=== PATIENT | male | born 1965 | race African-American/Black ===

== ENCOUNTER 2020-06-04 11:18 | Inpatient (IN) | payer MEDICARE, MEDICAID ==
[~2020-06-04] VITALS: Ht 182.9 cm; Wt 81.2 kg
[2020-06-04] VITALS (7 sets, daily range): BP systolic 65–135; BP diastolic 29–102
[2020-06-04] MEDS ORDERED: ASPI-1497 PO (11:22)
[2020-06-04] MEDS ORDERED: PANTOPRAZOLE SODIUM 40 MG/VIAL IV STA (11:40)
[2020-06-04 12:44] LABS: HEMATOCRIT. 25.5 % (42.0-52.0); HEMOGLOBIN. 8.9 g/dL (14.0-18.0); MEAN CORPUSCULAR HEMOGLOBIN 34.5 pg (28.0-32.0); MEAN CORPUSCULAR VOLUME 99.4 fL (80.0-94.0); MEAN PLATELET VOLUME 9.9 fl (7.4-10.4); PLATELET 232 x1000/uL (130-400); RED BLOOD CELL COUNT 2.57 mill/uL (4.7-6.1); RED CELL DISTRIBUTION WIDTH 15.5 % (11.6-14.6)
[2020-06-04 12:49] LABS: CHLORIDE 97 mEq/L (98-107)
[2020-06-04 13:00] LABS: PROTHROMBIN TIME 30.1 sec (9.6-11.0)
[2020-06-04] MEDS ORDERED: PIPERACILLIN/TAZOBACTAM 3.375GM/50ML PREMIX IV ONE (13:00)
[2020-06-04] MEDS ORDERED: PIPERACILLIN/TAZ 3.375G PREMIX 50 ML IV SCH (13:15)
[2020-06-04] MEDS ORDERED: SODIUM CHLORIDE 0.9% 500 ML IV ONE ×2 (13:15→19:45)
[2020-06-04 13:27] LABS: PLATELET ESTIMATE NORMAL
[2020-06-04] MEDS ORDERED: CEFEPIME 1,000 MG in DEXTROSE 5% WATER 50 ML IV SCH ×2 (14:00→16:00)
[2020-06-04] MEDS ORDERED: PHYTONADIONE 10MG/ML AMP SUBCUT SCH (14:00)
[2020-06-04] MEDS ORDERED: ONDANSETRON HCL 4MG/2ML INJ IV PRN ×2 (14:00→23:45)
[2020-06-04] MEDS ORDERED: NOREPINEPHRINE 8MG/250ML PMX 250 ML IV SCH (14:30)
[2020-06-04] MEDS ORDERED: VANCOMYCIN 1500MG in DEXTROSE 5% WATER 250ML IV SCH (15:00)
[2020-06-04] MEDS ORDERED: METRONIDAZOLE 500 MG PREMIX 100 ML IV SCH (16:30)
[2020-06-04] MEDS ORDERED: LACTULOSE 20G/30ML UDC PO NR (18:13)
[2020-06-04] MEDS ORDERED: PHENYLEPHRINE 50 MG in DEXT 5% WATER 245 ML IV PRN (18:15)
[2020-06-04] MEDS ORDERED: NOREPINEPHRINE 8 MG in DEXT 5% WATER 242 ML IV PRN (20:15)
[2020-06-04] MEDS: PANTOPRAZOLE SODIUM 40 MG/VIAL IV SCH (20:55)
[2020-06-04 21:55] LABS: TOTAL IRON BINDING CAPACITY 61 ug/dL (250-450)
[2020-06-04] MEDS: LACTULOSE 20G/30ML UDC PO SCH (22:00)
[2020-06-04 22:51] LABS: BG BASE EXCESS -21.2 mmol/L (-2.0-2.0); BG CARBOXYHEMOGLOBIN 0.5 % (0.5-1.5); BG DEOXYHEMOGLOBIN 1.7 % (0.0-5.0); BG FRACTION INSPIRED OXYGEN 44; BG HCO3 ACT 4.9 mmol/L (22.0-26.0); BG METHEMOGLOBIN 0.2 % (0.0-1.5); BG OXYGEN SATURATION 98.3 % (92.0-98.5); BG OXYHEMOGLOBIN 97.6 % (94.0-97.0); BG PCO2 13.1 mmHg (35.0-45.0); BG PO2 141.2 mmHg (75.0-100.0); BG SAMPLE SITE LEFT RADIAL; BG TOTAL HEMOGLOBIN 8.7 g/dL (12.0-18.0); BG VENT MODE NASAL CANNULA
[2020-06-04 22:59] LABS: VITAMIN B12 SERUM > 2000.0 pg/mL (211-911)
[2020-06-04 23:06] LABS: FERRITIN 2933 ng/mL (22-322)
[2020-06-04] MEDS ORDERED: DIPHENHYDRAMINE 50MG/ML VIAL IV PRN (23:45)
[2020-06-04] MEDS ORDERED: MORPHINE SULFATE 2 MG/ML CPJ (NOT FOR IM USE) IV PRN (23:45)
[2020-06-04] MEDS ORDERED: SODIUM BICARBONATE 8.4% 1 MEQ/ML 50ML SYR IV NR (23:45)
[2020-06-04] MEDS ORDERED: NALOXONE HCL 0.4 MG/ML 1ML VIAL IV PRN (23:45)
[2020-06-04] MEDS ORDERED: DEXTROSE 50% WATER 50ML SYRINGE IV PRN (23:45)
[2020-06-05] VITALS (106 sets, daily range): BP systolic 61–157; BP diastolic 24–132
[2020-06-05 01:43] LABS: HEMATOCRIT. 21.7 % (42.0-52.0); HEMOGLOBIN. 7.4 g/dL (14.0-18.0); MEAN CORPUSCULAR HEMOGLOBIN 34.8 pg (28.0-32.0); MEAN CORPUSCULAR VOLUME 102.3 fL (80.0-94.0); MEAN PLATELET VOLUME 10.2 fl (7.4-10.4); PLATELET 236 x1000/uL (130-400); RED BLOOD CELL COUNT 2.12 mill/uL (4.7-6.1); RED CELL DISTRIBUTION WIDTH 16.4 % (11.6-14.6)
[2020-06-05] MEDS ORDERED: SODIUM BICARBONATE 150 MEQ in DEXTROSE 5% WATER 1,000 ML IV SCH (01:45)
[2020-06-05] MEDS: NOREPINEPHRINE 32 MG in DEXT 5% WATER 218 ML IV PRN ×3 (04:32→20:35)
[2020-06-05] MEDS: METRONIDAZOLE 500 MG PREMIX 100 ML IV SCH ×2 (05:23→19:27)
[2020-06-05] MEDS: LACTULOSE 20G/30ML UDC PO SCH (05:23)
[2020-06-05] MEDS: BLOOD SUGAR DIAGNOSTIC STRIP TEST SCH ×5 (05:24→20:26)
[2020-06-05] MEDS: INSULIN LISPRO 100 UNITS/ML SUBCUT SCH ×5 (05:24→20:26)
[2020-06-05] MEDS ORDERED: LACTULOSE 20G/30ML UDC PO SCH ×2 (09:00→17:00)
[2020-06-05] MEDS ORDERED: MIDAZOLAM HCL 100 MG in DEXT 5% WATER 80 ML IV PRN (10:30)
[2020-06-05] MEDS ORDERED: FENTANYL CITRATE/PF 1,000 MCG in SODIUM CHLORIDE 0.9% 80 ML IV PRN (10:30)
[2020-06-05] MEDS: PHENYLEPHRINE 50 MG in DEXT 5% WATER 245 ML IV PRN (11:02)
[2020-06-05] MEDS ORDERED: ETOMIDATE 2MG/ML 10ML VIAL IV ONE (11:16)
[2020-06-05] MEDS ORDERED: VECURONIUM BROMIDE 10 MG/VIAL IV ONE (11:16)
[2020-06-05 11:32] LABS: HEMATOCRIT. 24.7 % (42.0-52.0); HEMOGLOBIN. 8.3 g/dL (14.0-18.0); MEAN CORPUSCULAR VOLUME 100.5 fL (80.0-94.0); MEAN PLATELET VOLUME 9.4 fl (7.4-10.4); PLATELET 213 x1000/uL (130-400); RED BLOOD CELL COUNT 2.45 mill/uL (4.7-6.1); RED CELL DISTRIBUTION WIDTH 15.5 % (11.6-14.6)
[2020-06-05 11:40] LABS: CHLORIDE 109 mEq/L (98-107)
[2020-06-05 11:42] LABS: INR 3.8; PROTHROMBIN TIME 36.9 sec (9.6-11.0)
[2020-06-05 11:49] LABS: BG BASE EXCESS -19.6 mmol/L (-2.0-2.0); BG CARBOXYHEMOGLOBIN 0.3 % (0.5-1.5); BG DEOXYHEMOGLOBIN 5.7 % (0.0-5.0); BG FRACTION INSPIRED OXYGEN 10; BG HCO3 ACT 9.7 mmol/L (22.0-26.0); BG METHEMOGLOBIN 0.4 % (0.0-1.5); BG OXYGEN SATURATION 94.3 % (92.0-98.5); BG OXYHEMOGLOBIN 93.6 % (94.0-97.0); BG PH 7.048 (7.350-7.450); BG PO2 98.7 mmHg (75.0-100.0); BG SAMPLE SITE RIGHT BRACHIAL; BG TIDAL VOLUME(mL) 500 mL; BG TOTAL HEMOGLOBIN 9.6 g/dL (12.0-18.0); BG VENT MODE VENT - A/C; BG VENT RATE 20 set
[2020-06-05] MEDS ORDERED: SODIUM BICARBONATE 8.4% 1 MEQ/ML 50ML SYR IV NR (12:00)
[2020-06-05 12:25] LABS: PHOSPHORUS 8.7 mg/dL (2.5-4.9)
[2020-06-05 12:29] LABS: PLATELET ESTIMATE NORMAL
[2020-06-05 12:49] LABS: FOLIC ACID (FOLATE) SERUM 10.7 ng/mL (>5.38)
[2020-06-05 13:18] LABS: PLATELET ESTIMATE NORMAL
[2020-06-05] MEDS ORDERED: CEFEPIME 1,000 MG in DEXTROSE 5% WATER 50 ML IV SCH (14:00)
[2020-06-05] MEDS ORDERED: PHYTONADIONE 10MG/ML AMP SUBCUT NR (14:30)
[2020-06-05] MEDS: PANTOPRAZOLE SODIUM 40 MG/VIAL IV SCH (15:08)
[2020-06-05 15:40] LABS: BG BASE EXCESS -15.1 mmol/L (-2.0-2.0); BG CARBOXYHEMOGLOBIN 0.3 % (0.5-1.5); BG DEOXYHEMOGLOBIN 0.4 % (0.0-5.0); BG FRACTION INSPIRED OXYGEN 100; BG HCO3 ACT 11.6 mmol/L (22.0-26.0); BG METHEMOGLOBIN 0.5 % (0.0-1.5); BG OXYGEN SATURATION 99.6 % (92.0-98.5); BG OXYHEMOGLOBIN 98.8 % (94.0-97.0); BG PCO2 30.2 mmHg (35.0-45.0); BG PH 7.203 (7.350-7.450); BG PO2 341.1 mmHg (75.0-100.0); BG SAMPLE SITE LEFT FEMORAL; BG TIDAL VOLUME(mL) 500 mL; BG TOTAL HEMOGLOBIN 8.7 g/dL (12.0-18.0); BG VENT MODE VENT - A/C; BG VENT RATE 26 set
[2020-06-05 16:12] LABS: CHLORIDE 107 mEq/L (98-107)
[2020-06-05 16:14] LABS: MEAN CORPUSCULAR HEMOGLOBIN 33.6 pg (28.0-32.0); MEAN CORPUSCULAR VOLUME 100.9 fL (80.0-94.0); MEAN PLATELET VOLUME 9.7 fl (7.4-10.4); PLATELET 207 x1000/uL (130-400); RED BLOOD CELL COUNT 2.38 mill/uL (4.7-6.1); RED CELL DISTRIBUTION WIDTH 16.2 % (11.6-14.6)
[2020-06-05 17:03] LABS: PLATELET ESTIMATE NORMAL
[2020-06-05] MEDS ORDERED: VANCOMYCIN 1 G PREMIX 200 ML IV NR (18:00)
[2020-06-05] MEDS ORDERED: SODIUM BICARBONATE 150 MEQ in DEXTROSE 5% WATER 1,000 ML IV ONE (18:00)
[2020-06-05] MEDS: DEXTROSE 50% WATER 50ML SYRINGE IV PRN (20:22)
[2020-06-05 21:40] LABS: T4 FREE 1.57 ng/dL (0.76-1.46)
[2020-06-05] MEDS: VASOPRESSIN 20 UNIT in SODIUM CHLORIDE 0.9% 99 ML IV PRN (22:16)
[2020-06-05] MEDS ORDERED: LEVETIRACETAM 250 MG in SODIUM CHLORIDE 0.9% 100 ML IV SCH (23:00)
[2020-06-06] VITALS (33 sets, daily range): BP systolic 55–171; BP diastolic 33–129
[2020-06-06] MEDS ORDERED: NOREPINEPHRINE 32 MG in DEXT 5% WATER 218 ML IV PRN (01:26)
[2020-06-06] MEDS ORDERED: PHENYLEPHRINE 50 MG in DEXT 5% WATER 245 ML IV PRN (01:26)
[2020-06-06] MEDS: PHENYLEPHRINE 50 MG in DEXT 5% WATER 245 ML IV PRN (01:51)
[2020-06-06] MEDS ORDERED: PHENYLEPHRINE 100 MG in DEXT 5% WATER 250 ML IV PRN (02:15)
[2020-06-06] MEDS: NOREPINEPHRINE 32 MG in DEXT 5% WATER 218 ML IV PRN (03:05)
[2020-06-06] MEDS: VASOPRESSIN 20 UNIT in SODIUM CHLORIDE 0.9% 99 ML IV PRN (04:14)
[2020-06-06] MEDS: METRONIDAZOLE 500 MG PREMIX 100 ML IV SCH (05:18)
[2020-06-06] MEDS: DEXTROSE 50% WATER 50ML SYRINGE IV PRN (06:27)
[2020-06-06 06:56] LABS: MEAN CORPUSCULAR HEMOGLOBIN 34.6 pg (28.0-32.0); MEAN CORPUSCULAR VOLUME 112.6 fL (80.0-94.0); MEAN PLATELET VOLUME 10.3 fl (7.4-10.4); PLATELET 137 x1000/uL (130-400); RED BLOOD CELL COUNT 1.81 mill/uL (4.7-6.1); RED CELL DISTRIBUTION WIDTH 17.7 % (11.6-14.6)
[2020-06-06] MEDS ORDERED: AMIODARONE HCL 900 MG in DEXT 5% WATER 482 ML IV PRN (07:00)
[2020-06-06 07:15] LABS: PROTHROMBIN TIME 39.8 sec (9.6-11.0)
[2020-06-06] MEDS ORDERED: EPINEPHRINE 5 MG in SODIUM CHLORIDE 0.9% 245 ML IV PRN (07:30)
[2020-06-06 07:43] LABS: BG FRACTION INSPIRED OXYGEN 100; BG HCO3 ACT 6.4 mmol/L (22.0-26.0); BG PCO2 21.2 mmHg (35.0-45.0); BG PH 7.099 (7.350-7.450); BG PO2 333.3 mmHg (75.0-100.0); BG SAMPLE SITE RIGHT FEMORAL; BG TIDAL VOLUME(mL) 500 mL; BG TOTAL HEMOGLOBIN < 4.5 g/dL (12.0-18.0); BG VENT MODE VENT - A/C; BG VENT RATE 26 set
[2020-06-06 07:52] LABS: INR 4.1; PARTIAL THROMBOPLASTIN TIME 129.7 sec (23.4-31.0)
[2020-06-06 08:12] LABS: HEMATOCRIT. 20.3 % (42.0-52.0); HEMOGLOBIN. 6.3 g/dL (14.0-18.0)
[2020-06-06] MEDS ORDERED: THIAMINE HCL 100MG TABLET PO SCH (09:00)
[2020-06-06] MEDS ORDERED: FOLIC ACID 1MG TABLET PO SCH (09:00)
[2020-06-06] MEDS ORDERED: MULTIVITAMINS,THER W-MINERALS TABLET PO SCH (09:00)
[2020-06-06 14:01] LABS: PLATELET ESTIMATE NORMAL
[2020-06-07 04:10] LABS: FOLATE HEMATOCRIT 21.1 % (37.5-51.0); FOLATE RBC 1213 ng/mL (>498)
== END 2020-06-06 14:15 | disposition expired | DRG 871 ==
LOC: ER 11:43 → EDBEDREQ 13:48 → EDBEDREQTM 13:48 → EDBEDREQSVC 13:48 → CVICU 17:44 → EDBEDREQTM 17:49 → EDBEDREQ 17:49 → ENRESERV 19:41
PROVIDERS: ADMIT Internal Medicine; ATTEND Internal Medicine
PROC: 02HV33Z Insertion of Infusion Device into Superior Vena Cava, Percutaneous Approach (ICD-10-PCS; 2020-06-04)
PROC: B548ZZA Ultrasonography of Superior Vena Cava, Guidance (ICD-10-PCS; 2020-06-04)
PROC: 5A1D70Z Performance of Urinary Filtration, Intermittent, Less than 6 Hours Per Day (ICD-10-PCS; 2020-06-04)
PROC: 5A1935Z Respiratory Ventilation, Less than 24 Consecutive Hours (ICD-10-PCS; principal; 2020-06-05)
PROC: 30233K1 Transfusion of Nonautologous Frozen Plasma into Peripheral Vein, Percutaneous Approach (ICD-10-PCS; 2020-06-05)
PROC: 30233N1 Transfusion of Nonautologous Red Blood Cells into Peripheral Vein, Percutaneous Approach (ICD-10-PCS; 2020-06-05)
PROC: 5A1D70Z Performance of Urinary Filtration, Intermittent, Less than 6 Hours Per Day (ICD-10-PCS; 2020-06-05)
PROC: 0BH17EZ Insertion of Endotracheal Airway into Trachea, Via Natural or Artificial Opening (ICD-10-PCS; 2020-06-05)
PROC: 5A12012 Performance of Cardiac Output, Single, Manual (ICD-10-PCS; 2020-06-06)
PROC: 5A1D70Z Performance of Urinary Filtration, Intermittent, Less than 6 Hours Per Day (ICD-10-PCS; 2020-06-06)
DX: A41.9 Sepsis, unspecified organism (principal); E43 Unspecified severe protein-calorie malnutrition; G93.41 Metabolic encephalopathy; J96.00 Acute respiratory failure, unspecified whether with hypoxia or hypercapnia; K85.90 Acute pancreatitis without necrosis or infection, unspecified; N17.0 Acute kidney failure with tubular necrosis; R65.21 Severe sepsis with septic shock; J18.9 Pneumonia, unspecified organism; E87.2 Acidosis; E87.1 Hypo-osmolality and hyponatremia; D68.9 Coagulation defect, unspecified; R18.8 Other ascites; K92.0 Hematemesis; K92.1 Melena; D53.9 Nutritional anemia, unspecified; E11.22 Type 2 diabetes mellitus with diabetic chronic kidney disease; E87.8 Other disorders of electrolyte and fluid balance, not elsewhere classified; I46.9 Cardiac arrest, cause unspecified; K72.90 Hepatic failure, unspecified without coma; K74.60 Unspecified cirrhosis of liver; F10.10 Alcohol abuse, uncomplicated; Y90.9 Presence of alcohol in blood, level not specified; K80.20 Calculus of gallbladder without cholecystitis without obstruction; R16.0 Hepatomegaly, not elsewhere classified; Z20.828 Contact with and (suspected) exposure to other viral communicable diseases; R57.1 Hypovolemic shock; I12.9 Hypertensive chronic kidney disease with stage 1 through stage 4 chronic kidney disease, or unspecified chronic kidney disease; N18.9 Chronic kidney disease, unspecified; Z74.01 Bed confinement status; Z68.24 Body mass index [BMI] 24.0-24.9, adult; Z83.2 Family history of diseases of the blood and blood-forming organs and certain disorders involving the immune mechanism; Z83.3 Family history of diabetes mellitus
CPT/HCPCS: 36415; 36600; 71045; 74176; 76705; 80053; 80202; 82140; 82248; 82270; 82375; 82607; 82728; 82746; 82747; 82805; 82962; 83036; 83540; 83550; 83605; 83615; 83735; 84100; 84439; 84443; 84481; 85014; 85025; 86850; 86900; 86920; 86927; 87070; 87635; 93005; 93970; 94002; 94003; 96365; 99291; C9113; J0282; J0692; J1815; J1953; J2370; J2405; J2543; J3370; J3430; J3490; J7040; J7050; J7060; J7070; P9016; P9017